=== PATIENT | male | born 1965 | race Caucasian/White ===

== ENCOUNTER → 2019-12-10 07:11 | Outpatient (CLI) | payer MEDICAID, SELFPAY ==
--- NOTE | 2019-12-10 | CA_ITS ---
APPROVED REPORT Exam: Pharmacologic Technologist: Eleonora Kenyon Ht: 5 ft 6 in Wt: 145 lbs BSA: 1.74 m2 HR: 52 bpm BP: 138/69 mmHg Indications: Angina Medical History Medications: Isosorbide,,,,, Aspirin,,,,, Metoprolol,,,,, MethADONE,,,,, RoSUVASTATIN,,,,, Stress Test Details Test: LEXISCAN HR Resting HR: 54 bpm Max Heart Rate (APMHR): 167 bpm Max HR Achieved: 79 bpm Target HR (85% APMHR): 141 bpm % of APMHR: 47 Recovery HR: 61 bpm BP Resting BP: 138.0/69.0 mmHg Max BP: 161.0/71.0 mmHg Recovery BP: 164.0/77.0 mmHg ECG Clinical Exercise duration: 04:00 min Highest Stage Achieved: Stress ECG Conclusion Resting ECG: Sinus Bradycardia Lexiscan portion completed. Patient complained of shortness of breath at peak infusion. Symptoms: Shortness of breath at peak infusion. Resolved in recovery. No chest pain. Arrhythmias/Ectopy: No ectopy. ST-T Changes: Less than 1.[address] depression. Conclusion: Images to follow. Electronically signed by : Prasanna Bronson, 12/10/2019 19:46:13
--- NOTE | 2019-12-10 07:11 | CA_ITS ---
APPROVED REPORT EXAM: Comprehensive 2D, Doppler, and color-flow Echocardiogram Office Electrician: Lucia Hernandez RDCS Ht: 5 ft 6 in Wt: 143lbs BSA: 1.73 BP: 140/76 mmHg Indications: Chest Pain, Shortness of Breath, CAD, Hyperlipidemia, Hypertension/HDD 2D Dimensions LVOT 1.80 cm (M/F) 1.5-2.5 M-Mode Dimensions RVDd 2.50 cm (0.9-2.6) LA Diam 3.00 cm (1.9-4.0) LVDd 2.90 cm (3.5-5.7) Ao Diam 3.30 cm (2.0-3.7) LVDs 5.60 cm (3.5-5.7) AV Cusp 1.80 cm (1.5-2.6) IVSd 0.40 cm (0.6-1.1) PWd 3.10 cm (0.6-1.1) EF (Teich) 60.00% EDV (Teich) 32.20 mL LV Diastology E/A Ratio 1.4 MED E' 5.65 (< 7 cm/sec) E'/MED E' Ratio 15.10 (>14) LAT E' 9.90 (<10 cm/sec) E/LAT E' Ratio 8.60 (>14) Mitral Valve MV E Max Nghia. 85.40 (40-130 cm/s) MV A Velocity 61.20 (40-130 cm/s) E/A Ratio 1.40 Left Ventricle Left atrium is mildly enlarged, left ventricle is normal size, left ventricular wall thickness is upper limit of the normal, visually estimated ejection fraction 55% with no regional wall motion abnormality, grade 1 diastolic dysfunction seen without tissue Doppler evidence of raise left atrial pressure. Right Ventricle Right atrium right ventricular normal size and contractility. Aortic Valve Aortic valve is grossly normal, there is no aortic stenosis or aortic insufficiency. Mitral Valve Mitral valve is grossly normal, there is mild mitral regurgitation. Tricuspid Valve Tricuspid valve is grossly normal, there is mild tricuspid regurgitation. Pulmonic Valve Pulmonic valve is poorly visualized. Great Vessels Aortic root is normal size. Pericardium No significant pericardial effusion noted. Conclusion 1. Normal left ventricular size, preserved left ventricular systolic function visually estimated ejection fraction 55% with no regional wall motion abnormality, grade 1 diastolic dysfunction seen without tissue Doppler evidence of raise left atrial pressure. 2. Mild mitral and tricuspid regurgitation. 3. No significant pericardial effusion noted. Electronically signed by : Prasanna Bronson, 12/10/2019 20:26:41
--- NOTE | 2019-12-10 07:11 | NM_ITS ---
APPROVED REPORT Exam: Nuclear Stress Test Indication: Chest pain, SOB, CAD, Hx of [place], HTN, High cholesterol, Tobacco use, Family history Patient Location: Outpatient Stress Tech: Eleonora Kenyon [place] Tech:Lillian Oliveros, ARRT, RT (R)(N) Ht: 5 ft 6 in Wt: 145 lbs HR: 52 bpm BP: 138/69 mmHg BSA: 1.74 m2 BMI: 23.4 History: Chest pain, SOB, CAD, Hx of [place], HTN, High cholesterol, Tobacco use, Family history Procedure: Patient received a 0.4 mg of intravenous Lexiscan, resting heart rate 52 bpm, resting blood pressure 138/69 mmHg, with Lexiscan maximum heart rate achived was 70 bpm which is Less than 85 % of the maximum predicted heart rate and blood pressure was 156/71 mmHg. With Lexiscan, patient denied any complaint of chest pain. Electrocardiogram Resting electrocardiogram showed sinus rhythm, with Lexiscan there is less than 1.[address] segment depression noted from the baseline EKG. The EKG portion of the Lexiscan Myoview is nondiagnostic. Cardiac Stress and Resting SPECT Images: Cardiac Stress and Resting SPECT images were obtained using technetium 99m Myoview 30.4 mCi stress and 10.89 mCi at rest. Gated SPECT with analysis of segmental wall motion and calculation of the ejection fraction also done. Cardiac stress and resting SPECT images show small area of decreased tracer activity in the anterolateral wall which improves on the resting images suggestive of reversible ischemia, computer derived ejection fraction is over 65% with no regional wall motion abnormality, right ventricle is normal size and contractility. Conclusion: 1. The EKG portion of the Lexiscan Myoview is nondiagnostic. 2. Scintigraphic evidence of small area reversible ischemia involving the anterolateral wall, computer derived ejection fraction is over 65% with no regional wall motion abnormality, right ventricle is normal size and contractility. 3. Abnormal Lexiscan Myoview study. Electronically signed by : Prasanna Bronson, 12/10/2019 19:48:58
--- NOTE | 2019-12-10 07:35 | HMH.ITSHM ---
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 []ROSUVASTATIN METOPROLOL METHADONE ISOSORBIDE ASA
== END ==
PROVIDERS: PCP Internal Medicine Cardiovascular Disease; Visit Provider Nurse Practitioner Family
DX: I20.9 Angina pectoris, unspecified (principal); E78.5 Hyperlipidemia, unspecified; R06.00 Dyspnea, unspecified; I10 Essential (primary) hypertension
CPT/HCPCS: 78452; 93017; 93306; A9502; J2785

== ENCOUNTER → 2020-04-04 10:46 | Outpatient (CLI) | payer MEDICAID, SELFPAY ==
[2020-04-04 11:13] LABS: Alanine Aminotransferase 12 U/L (12-78); Albumin Level 4.2 g/dl (3.5-5.0); Alkaline Phosphatase 142 U/L (38-126); Aspartate Amino Transferase 32 U/L (17-59); Bilirubin,Direct 0.1 mg/dl (0.0-0.4); Bilirubin,Indirect 0.2 mg/dL (0.0-0.9); Bilirubin,Total 0.3 mg/dl (0.2-1.3); Bilirubin,Unconjugated 0.3 mg/dL (0.0-1.1); Chol/HDL Ratio 2.3 (1-3.5); Cholesterol 127 mg/dl (140-200); HDL Cholesterol 55 mg/dl (40-60); Total Protein,Serum 7.6 g/dl (6.3-8.2); Triglycerides 124 mg/dl (30-150); VLDL Cholesterol 25 mg/dL (0-40)
[2020-04-04 11:25] LABS: Direct LDL Cholesterol 54.06 mg/dL (100-129)
== END ==
PROVIDERS: Visit Provider Internal Medicine Cardiovascular Disease
DX: E78.2 Mixed hyperlipidemia (principal); I10 Essential (primary) hypertension; I25.118 Atherosclerotic heart disease of native coronary artery with other forms of angina pectoris; I25.2 Old myocardial infarction; R06.02 Shortness of breath; Z95.5 Presence of coronary angioplasty implant and graft
CPT/HCPCS: 36415; 80061; 80076

== ENCOUNTER → 2020-10-27 07:14 | Outpatient (CLI) | payer MEDICAID, SELFPAY ==
--- NOTE | 2020-10-27 07:15 | NM_ITS ---
APPROVED REPORT Exam: Nuclear Stress Test Indication: Chest pain, SOB, Syncope, Dizziness, HTN, CAD, Hx of [place], High cholesterol, Tobacco use, Family history Patient Location: Outpatient Stress Tech: Eleonora Kenyon [place] Tech:Lillian Oliveros, ARRT, RT (R)(N) Ht: 5 ft 3 in Wt: 150 lbs HR: 60 bpm BP: 171/79 mmHg BSA: 1.71 m2 BMI: 26.5 History: Chest pain, SOB, Syncope, Dizziness, HTN, CAD, Hx of [place], High cholesterol, Tobacco use, Family history Procedure: Patient received a 0.4 mg of intravenous Lexiscan, resting heart rate 60 bpm, resting blood pressure 171/79 mmHg, with Lexiscan maximum heart rate achived was 70 bpm which is Less than 85 % of the maximum predicted heart rate and blood pressure was 171/89 mmHg. With Lexiscan, patient denied any complaint of chest pain. Electrocardiogram Resting electrocardiogram showed sinus rhythm, with Lexiscan there is less than 1.[address] segment depression noted from the baseline EKG. The EKG portion of the Lexiscan is nondiagnostic. Cardiac Stress and Resting SPECT Images: Cardiac Stress and Resting SPECT images were obtained using technetium 99m Myoview 31.4 mCi stress and 10.33 mCi at rest. Gated SPECT for analysis of segmental wall motion and calculation of the ejection fraction also done. Prone images were also obtained. Cardiac stress and resting SPECT images show a small area of fixed defect involving the inferior apical wall with normal contractility on gated SPECT is likely secondary to soft tissue attenuation, no reversible ischemia seen. Computer derived ejection fraction 55% with no regional wall motion abnormality, right ventricle is normal size and contractility. Conclusion: 1. The EKG portion of the Lexiscan Myoview is nondiagnostic. 2. No scintigraphic evidence of reversible ischemia seen, computer derived ejection fraction is 55% with no regional wall motion abnormality, right ventricle is normal size and contractility. 3. Likely normal Lexiscan Myoview study. Electronically signed by : Prasanna Bronson, 10/28/2020 06:21:40
--- NOTE | 2020-10-27 07:15 | CA_ITS ---
APPROVED REPORT Exam: Pharmacologic Technologist: Eleonora Kenyon Ht: 5 ft 6 in Wt: 152 lbs BSA: 1.78 m2 HR: 60 bpm BP: 171/79 mmHg Indications: Chest pain Medical History Medications: Omeprazole,,,,, Isosorbide,,,,, Aspirin,,,,, Metoprolol,,,,, Losartan,,,,, CloPIdogrel,,,,, RoSUVASTATIN,,,,, Stress Test Details Test: LEXISCAN HR Resting HR: 58 bpm Max Heart Rate (APMHR): 166 bpm Max HR Achieved: 74 bpm Target HR (85% APMHR): 141 bpm % of APMHR: 44 Recovery HR: 64 bpm BP Resting BP: 171.0/79.0 mmHg Max BP: 171.0/79.0 mmHg Recovery BP: 130.0/80.0 mmHg ECG Clinical Reason for Termination: Completed Protocol Exercise duration: 04:00 min Highest Stage Achieved: Exercise capacity: 1.0 METs Stress ECG Conclusion Symptoms: None Arrhythmias/Ectopy: None ST-T Changes: < 1.[address] segment changes Conclusion: Non-diagnostic lexiscan stress test. Patient received the infusion per protocol without chest pain, ST segment changes or arrhythmias. See the nuclear report for further information. Test Summary . Myoview Injected . . . Stop exercise at 04:00 . . . . . Electronically signed by : Prasanna Bronson, 10/28/2020 06:13:13
--- NOTE | 2020-10-27 08:59 | HMH.ITSHM ---
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 []ROSUVASTATIN OMEPRAZOLE NITRO METOPROLOL LOSARTAN ISOSORBIDE CLOPIDOGREL ASA
== END ==
PROVIDERS: Visit Provider Nurse Practitioner Family
DX: R06.02 Shortness of breath (principal); I20.9 Angina pectoris, unspecified; I10 Essential (primary) hypertension; E78.2 Mixed hyperlipidemia; F17.200 Nicotine dependence, unspecified, uncomplicated; I25.118 Atherosclerotic heart disease of native coronary artery with other forms of angina pectoris; I25.2 Old myocardial infarction; Z95.5 Presence of coronary angioplasty implant and graft
CPT/HCPCS: 78452; 93017; A9502; J2785

== ENCOUNTER → 2022-06-09 15:25 | Outpatient (CLI) | payer MEDICAID, SELFPAY ==
[2022-06-09 16:19] LABS: Basophils % 0.6 % (0.1-2.0); Eosinophils # 0.1 K/mm3 (0.0-0.4); Eosinophils % 1.5 % (0.1-12.0); Hematocrit 41.7 % (42.0-52.0); Hemoglobin 12.9 g/dL (14.1-18.0); Lymphocytes # 2.3 K/mm3 (0.7-4.5); Lymphocytes % 40.1 % (10-50); Mean Corpuscular HGB Conc 30.9 g/dL (31.8-35.4); Mean Corpuscular Hemoglobin 30.3 pg (27.0-31.2); Mean Corpuscular Volume 98.2 fl (80-94); Monocytes # 0.4 K/mm3 (0.1-1.0); Monocytes % 6.3 % (1.7-9.3); Neutrophils % 51.5 % (37.0-80.0); Platelet Count 200 K/mm3 (142-424); Red Blood Count 4.24 M/mm3 (4.60-6.20); Red Cell Distribution Width 13.7 % (11.5-17.5); White Blood Count 5.8 K/mm3 (4.8-10.8)
== END ==
PROVIDERS: Visit Provider Physician Assistant
DX: Z01.812 Encounter for preprocedural laboratory examination (principal); Z20.822 Contact with and (suspected) exposure to COVID-19; R06.02 Shortness of breath; I20.8 Other forms of angina pectoris; I10 Essential (primary) hypertension; I25.2 Old myocardial infarction; E78.2 Mixed hyperlipidemia; I63.9 Cerebral infarction, unspecified; F17.200 Nicotine dependence, unspecified, uncomplicated; Z95.5 Presence of coronary angioplasty implant and graft
CPT/HCPCS: 36415; 85025; C9803; U0003; U0005

== ENCOUNTER 2022-06-10 08:59 | Day surgery (SDC) | payer MEDICAID, SELFPAY ==
[2022-06-10] VITALS (15 sets, daily range): BP systolic 76–185; BP diastolic 43–105; PULSE 40–78; RESP 18; TEMP 36.9; O2SAT 95–98; BMI 21.7
--- NOTE | 2022-06-10 07:38 | IR_ITS ---
APPROVED REPORT Patient Location: Outpatient Wafer Production Lead Worker: MAL Allen RT (R) PROCEDURES Left heart catheterization Left ventriculogram Selective coronary angiogram Drug-eluting stent deployment to the mid LAD Drug-eluting stent deployment to the proximal dominant right coronary INDICATION Coronary artery disease, Accelerated angina pectoris Informed consent was obtained prior to the procedure. COMPLICATIONS None Estimated Blood Loss: Less than 10 mls TECHNIQUE One percent lidocaine used to anesthetize the right anterior aspect of the wrist. The right radial artery was accessed via the Seldinger technique. A 6 Malay sheath was placed in the right radial artery. 2.5 mg of verapamil, 800 mcg of nitroglycerin, 1mg Lidocaine and 5000 U Heparin were given through the arterial sheath. The papa catheter was also used to perform left heart catheterization, left ventriculogram and selective coronary angiogram. At the end of the diagnostic angiogram therapeutic heparin was administered and the guide catheter was placed in the left main artery followed by a Choice PT extra-support wire. A 3 mm x 15 mm resolute [place] stent was deployed at 24 ricarda reducing the severe in-stent restenotic lesion to 0%. MARYCHUY-3 flow was present before and after the procedure. Following this the apparatus was removed and the guide catheter was placed in the right coronary artery followed by the same wire. A 2.75 x 15 mm resolute Matlock stent was then deployed at 22 ricarda in the proximal right coronary artery reducing the severe stenosis to 0%. MARYCHUY-3 flow was present before and after the procedure. At the end of the procedure the apparatus was removed the sheath was removed good hemostasis was achieved using TR banding patient was transferred to the postop holding area in stable condition ANGIOGRAPHIC RESULTS The left main artery Normal The left anterior descending artery Has a proximal 20% stenosis immediately proximal to a proximal LAD stent which extends throughout the proximal and midportion of the LAD. The distal portion of the stent has a concentric 90% in-stent restenotic lesion. The circumflex artery Large nondominant with diffuse 30% stenoses in the second obtuse marginal artery and true circumflex artery The right coronary artery Is dominant and has a proximal concentric 80% stenosis followed by a long diffuse mid vessel 30% stenosis The HAZEL ventriculogram reveals Normal 65% The left ventricular end-diastolic pressure 10 mmHg IMPRESSION Severe two-vessel coronary disease as described above Successful stenting of the mid LAD and proximal right coronary artery Normal ejection fraction Normal left ventricular end-diastolic pressure PLAN 1. Dual antiplatelet therapy 2. LDL less than 55 to be achieved with high intensity statin 3. Avoidance of tobacco products 4. Cardiac rehabilitation 5. Aggressive risk factor modification Electronically signed by : Fabien Brown MD 06/10/2022 12:12:53
[2022-06-10 11:30] LABS: CATHL Activated Clotting Time 273 SEC (74-125)
--- NOTE | 2022-06-10 14:46 | HMH.PHACLD ---
Colton Velazquez has received discharge medication counseling on the following medications: -ASPIRIN (PATIENT ALREADY TAKING) -PLAVIX (PATIENT ALREADY TAKING) -ROSUVASTATIN (PATIENT ALREADY TAKING) -METOPROLOL (PATIENT ALREADY TAKING) -LOSARTAN (PATIENT ALREADY TAKING) PATIENT VERBALIZED NO QUESTIONS AT THIS TIME.
== END 2022-06-10 14:59 | disposition home or self-care (01) ==
LOC: CATHLAB 09:01
PROVIDERS: Visit Provider Internal Medicine
DX: I10 Essential (primary) hypertension (principal); E78.2 Mixed hyperlipidemia; F17.210 Nicotine dependence, cigarettes, uncomplicated; I25.118 Atherosclerotic heart disease of native coronary artery with other forms of angina pectoris; I25.2 Old myocardial infarction; R06.02 Shortness of breath; Z95.5 Presence of coronary angioplasty implant and graft; T82.855A Stenosis of coronary artery stent, initial encounter
CPT/HCPCS: 85347; 92928; 93458; 99152; C1725; C1769; C1876; C9600; J1644; Q9967

== ENCOUNTER → 2022-06-17 09:33 | Outpatient (CLI) | payer MEDICAID, SELFPAY ==
[2022-06-17 10:55] LABS: Alanine Aminotransferase 15 U/L (12-78); Albumin Level 3.6 g/dl (3.5-5.0); Alkaline Phosphatase 125 U/L (38-126); Aspartate Amino Transferase 29 U/L (17-59); Bilirubin,Direct 0.2 mg/dl (0.0-0.4); Bilirubin,Total 0.2 mg/dl (0.2-1.3); Chol/HDL Ratio 2.4 (1-3.5); Cholesterol 106 mg/dl (140-200); HDL Cholesterol 45 mg/dl (40-60); Total Protein,Serum 6.4 g/dl (6.3-8.2); Triglycerides 87 mg/dl (30-150); VLDL Cholesterol 17 mg/dL (0-40)
[2022-06-18 08:29] LABS: Direct LDL Cholesterol 42 mg/dL (100-129)
== END ==
PROVIDERS: PCP Pediatrics; Visit Provider Nurse Practitioner
DX: I25.10 Atherosclerotic heart disease of native coronary artery without angina pectoris (principal); I25.2 Old myocardial infarction; R00.1 Bradycardia, unspecified; I11.9 Hypertensive heart disease without heart failure; E78.5 Hyperlipidemia, unspecified; F17.200 Nicotine dependence, unspecified, uncomplicated; Z95.5 Presence of coronary angioplasty implant and graft
CPT/HCPCS: 36415; 80061; 80076

== ENCOUNTER 2024-03-21 14:09 | Outpatient (CLI) | payer MEDICAID, SELFPAY ==
[2024-03-21 14:32] LABS: Basophils # 0.1 K/mm3 (0-0.2); Basophils % 0.9 % (0.1-2.0); Eosinophils # 0.1 K/mm3 (0.0-0.4); Eosinophils % 1.3 % (0.1-12.0); Hematocrit 42.2 % (42.0-52.0); Hemoglobin 13.5 g/dL (14.1-18.0); Lymphocytes % 38.1 % (10-50); Mean Corpuscular HGB Conc 32.1 g/dL (31.8-35.4); Mean Corpuscular Hemoglobin 30.3 pg (27.0-31.2); Mean Corpuscular Volume 94.3 fl (80-94); Mean Platelet Volume 7.9 fl (7.4-10.4); Monocytes # 0.5 K/mm3 (0.1-1.0); Monocytes % 6.3 % (1.7-9.3); Neutrophils # 4.1 K/mm3 (1.8-7.8); Neutrophils % 53.4 % (37.0-80.0); Platelet Count 195 K/mm3 (142-424); Red Blood Count 4.48 M/mm3 (4.60-6.20); Red Cell Distribution Width 13.6 % (11.5-17.5); White Blood Count 7.7 K/mm3 (4.8-10.8)
[2024-03-21 15:02] LABS: Chloride 105 mmol/L (98-107)
[2024-03-21 15:03] LABS: Potassium 4.5 mmoL/L (3.5-5.1); Sodium 141 mmol/L (136-145)
[2024-03-21 15:05] LABS: Alanine Aminotransferase 16 U/L (12-78); Anion Gap 10.5 mEq/L (5-15); Aspartate Amino Transferase 30 U/L (17-59); Bilirubin,Unconjugated 0.1 mg/dL (0.0-1.1); Blood Urea Nitrogen 25 mg/dl (9-20); Carbon Dioxide 30 mmol/L (22.0-30.0); Cholesterol 100 mg/dl (140-200); Estimated Glomerular Filt Rate 62 ml/min (>60); GFR (African American) 76 ML/MIN (>60); Triglycerides 138 mg/dl (30-150); VLDL Cholesterol 28 mg/dL (0-40)
[2024-03-21 15:06] LABS: Albumin Level 3.9 g/dl (3.5-5.0); Alkaline Phosphatase 102 U/L (38-126); Bilirubin,Direct 0.3 mg/dl (0.0-0.4); Bilirubin,Total 0.3 mg/dl (0.2-1.3); Calcium 9.2 mg/dl (8.4-10.2); Glucose 79 mg/dl (74-100); Magnesium 1.8 mg/dl (1.6-2.3); Total Protein,Serum 6.4 g/dl (6.3-8.2)
[2024-03-21 15:17] LABS: Direct LDL Cholesterol 34.67 mg/dL (100-129)
[2024-03-21 15:20] LABS: Free T4 (Free Thyroxine) 0.91 ng/dl (0.78-2.19)
[2024-03-21 15:36] LABS: Thyroid Stimulating Hormone 1.63 uIU/mL (0.465-4.68)
[2024-03-21 18:13] LABS: HDL Cholesterol 51 mg/dl (40-60)
== END 2024-03-21 23:59 | disposition home or self-care (01) ==
LOC: LAB 14:10
PROVIDERS: PCP Pediatrics; Visit Provider Internal Medicine
DX: R00.1 Bradycardia, unspecified (principal); I25.119 Atherosclerotic heart disease of native coronary artery with unspecified angina pectoris; F17.210 Nicotine dependence, cigarettes, uncomplicated
CPT/HCPCS: 36415; 80048; 80061; 80076; 83735; 84439; 84443; 85025; 93270

== ENCOUNTER 2024-04-03 14:18 | Outpatient (CLI) | payer MEDICAID, SELFPAY ==
--- NOTE | 2024-04-03 14:20 | CA_ITS ---
APPROVED REPORT EXAM: Comprehensive 2D, Doppler, and color-flow Echocardiogram Senior Environmental Practice Leader: HAMLET Berrios, RVS Ht: 5 ft 6 in Wt: 133lbs BSA: 1.68 BP: 127/72 mmHg Indications: CAD, Stents, Smoker, CP, CAD, CP, HTN, HLD, SOB, SMOKER 2D Dimensions IVSd 0.85 cm LVEF (Visual) 50.50 % PWd 0.81 cm LA Volume 44.70 mL LVDd 3.91 cm LA Volume Index 26.00 mL/m2 (M/F) 16-34 LVDs 2.92 cm Left Atrium 3.79 cm M-Mode Dimensions RVDd 3.17 cm (0.9-2.6) LA Diam 3.99 cm (1.9-4.0) LVDd 3.57 cm (3.5-5.7) LVDs 2.42 cm (3.5-5.7) IVSd 0.82 cm (0.6-1.1) PWd 0.78 cm (0.6-1.1) EF (Teich) 61.40% EPSs 0.61 cm FS 32.20% EDV (Teich) 53.30 mL TAPSE 1.98 (<1.7) ESV (Teich) 20.60 mL LV Diastology E Decel Time 297 (160-240 msec) E/A Ratio 1.01 Aortic Valve LISANDRA Index 1.43 cm2/m2 AoV Peak Nghia. 122.0 (50-130 cm/s) AO Peak GR. 6.00 mmHg AO Mean GR. 3.00 (<5 mmHg) AO VTI 27.9 (18-25 cm) LISANDRA (VTI) 2.46 (2.5-4.5 cm2) Mitral Valve MV A Velocity 53.0 (40-130 cm/s) E/A Ratio 1.01 Pulmonary Valve MN End VMAX 216.0 cm/s Tricuspid Valve TR P. Velocity 208.00 cm/s RAP Estimate 10.00 mmHg RVSP 27.20 mmHg Left Ventricle The left ventricle is normal size. The left ventricular systolic function is normal. The left ventricular ejection fraction is within the normal range. There is normal left ventricular wall thickness. There is normal LV segmental wall motion. The left ventricular diastolic function is normal. LVEF is 55%. Right Ventricle The right ventricle is normal size. The right ventricular systolic function is normal. Atria The left atrium size is normal. The right atrium size is normal. There is no Doppler evidence of interatrial shunt. Aortic Valve The aortic valve opens well. There is no aortic valvular stenosis. No aortic regurgitation is present. Mitral Valve The mitral valve is normal in structure. No evidence of mitral valve stenosis. Trace mitral valve regurgitation. Tricuspid Valve The tricuspid valve leaflets are thin and pliable. Trace tricuspid regurgitation. RVSP is normal. Pulmonic Valve The pulmonary valve is normal in structure. Trace pulmonic regurgitation. Great Vessels The aortic root is normal in size. The ascending aorta is normal in size. IVC is normal in size and collapses >50% with inspiration. Pericardium There is no pericardial effusion. Other Information Study Quality: Fair Conclusion Normal biventricular systolic function. No significant valvular stenosis or regurgitation. Electronically signed by : Leann Cantu MD 04/03/2024 23:56:13
== END 2024-04-03 23:59 | disposition home or self-care (01) ==
LOC: RT 14:18
PROVIDERS: PCP Pediatrics; Visit Provider Internal Medicine
DX: I25.119 Atherosclerotic heart disease of native coronary artery with unspecified angina pectoris (principal); R00.1 Bradycardia, unspecified; F17.210 Nicotine dependence, cigarettes, uncomplicated
CPT/HCPCS: 93306

== ENCOUNTER 2024-10-31 09:25 | Day surgery (SDC) | payer MEDICAID, SELFPAY ==
[2024-10-31] VITALS (13 sets, daily range): BP systolic 77–141; BP diastolic 52–88; PULSE 56–70; RESP 16–20; TEMP 36.9; O2SAT 89–99; BMI 21.7
--- NOTE | 2024-10-31 07:01 | IR_ITS ---
APPROVED REPORT Patient Location: Outpatient PROCEDURES Left heart catheterization Left ventriculogram Selective coronary angiogram Drug-eluting stent deployment to the mid LAD INDICATION Coronary artery disease, In-stent restenosis, Angina pectoris, Informed consent was obtained prior to the procedure. COMPLICATIONS NONE Estimated Blood Loss: LESS THAN 10 ML TECHNIQUE One percent lidocaine used to anesthetize the right anterior aspect of the wrist. The right radial artery was accessed via the Seldinger technique. A 6 Iranian sheath was placed in the right radial artery. 2.5 mg of Verapamil, 800 mcg of nitroglycerin, 1mg Lidocaine and 5000 U Heparin were given through the arterial sheath. The 6 Iranian JL 3 was also used to perform left heart catheterization, left ventriculogram and selective coronary angiogram. At the end the diagnostic angiogram therapeutic Was administered giving a therapeutic ACT and the guide catheter was placed in left main artery followed by Choice PT extra-support wire placed distally. A 3 mm x 18 mm [place] frontier stent was deployed at 24 ricarda reducing the severe stenosis to 0%. MARYCHUY-3 flow was present before and after the procedure. Within the procedure the apparatus was removed the sheath was removed and hemostasis was achieved using TR banding patient was transferred to the postop putting in stable condition ANGIOGRAPHIC RESULTS The left main artery Normal The left anterior descending artery Has a stent in the proximal segment which is widely patent with minimal in-stent restenosis. The mid LAD has concentric 80 to 90% in-stent restenosis with remaining LAD widely patent. The circumflex artery There is a large dominant vessel with proximal 20 to 30% stenosis with a stent in the mid segment which appears to be widely patent with minimal in-stent restenosis. The right coronary artery Nondominant with a stent in the proximal segment which has mild in-stent restenosis and mid vessel 20 to 30% stenosis The HAZEL ventriculogram reveals Not performed The left ventricular end-diastolic pressure Not measured IMPRESSION Severe in-stent restenosis within the mid LAD Successful stent to the mid LAD severe disease reduced to 0% with 1 drug-eluting stent PLAN 1. Dual antiplatelet therapy 2. Cardiac rehabilitation 3. Avoidance of tobacco products 4. Risk factor modification 5. LDL less than 55 to be achieved with high intensity statin Electronically signed by : Fabien Brown MD 10/31/2024 12:38:27
[2024-10-31 10:03] LABS: Hematocrit 44.3 % (42.0-52.0); Hemoglobin 14.3 g/dL (14.1-18.0); Potassium 3.8 mmoL/L (3.5-5.1); Red Blood Count 4.77 M/mm3 (4.60-6.20); White Blood Count 9.6 K/mm3 (4.8-10.8)
[2024-10-31 10:04] LABS: Anion Gap 7.8 mEq/L (5-15); Basophils % 0.4 % (0.1-2.0); Blood Urea Nitrogen 21 mg/dl (9-20); Carbon Dioxide 32 mmol/L (22.0-30.0); Chloride 102 mmol/L (98-107); Creatinine Clearance Estimated 77 mL/min (50-200); Eosinophils # 0.1 K/mm3 (0.0-0.4); Eosinophils % 0.6 % (0.1-12.0); Estimated Glomerular Filt Rate 87 ml/min (>60); GFR (African American) 105 ML/MIN (>60); Glucose 89 mg/dl (74-100); Lymphocytes # 2.1 K/mm3 (0.7-4.5); Mean Corpuscular HGB Conc 32.3 g/dL (31.8-35.4); Mean Corpuscular Volume 92.9 fl (80-94); Mean Platelet Volume 9.1 fl (7.4-10.4); Monocytes # 0.5 K/mm3 (0.1-1.0); Monocytes % 5.3 % (1.7-9.3); Neutrophils # 6.9 K/mm3 (1.8-7.8); Neutrophils % 71.4 % (37.0-80.0); Platelet Count 216 K/mm3 (142-424); Red Cell Distribution Width 12.5 % (11.5-17.5); Sodium 138 mmol/L (136-145)
[2024-10-31] MEDS: HEPARIN 1,000 UNITS/ML 10ML VIAL (CATH LAB) 10000 UNIT IV (11:19)
[2024-10-31] MEDS: VERAPAMIL 2.5MG/ML 2ML VIAL 2.5 MG IV (11:19)
[2024-10-31] MEDS: HEPARIN 1,000 UNITS/500ML NS (CATH LAB) 3000 UNIT IV (11:20)
[2024-10-31] MEDS: LIDOCAINE 1% 10ML MDV 20 ML IJ (11:20)
[2024-10-31] MEDS: NITROGLYCERIN 800MCG/8ML SYR (CATH LAB) 800 MCG IA (11:20)
[2024-10-31] MEDS: diphenhydrAMINE 50MG/ML VIAL 50 MG IV (11:21)
[2024-10-31] MEDS: 0.9 % SODIUM CHLORIDE 500 ML 25 ML IV (11:21)
[2024-10-31] MEDS: FENTANYL 100MCG/2ML VIAL 50 MCG IV (12:22)
[2024-10-31] MEDS: MIDAZOLAM HCL 1MG/ML 5ML VIAL 1 MG IV (12:22)
--- NOTE | 2024-10-31 12:29 | SUR.PHASEII ---
No beta meagan per MD
[2024-10-31] MEDS: IOPAMIDOL-370 (76%);100ML BOTTLE 60 ML IV (14:00)
[2024-10-31 14:15] LABS: CATHL Activated Clotting Time 199 SEC (74-125)
== END 2024-10-31 15:17 | disposition home or self-care (01) ==
LOC: CATHLAB 09:26
PROVIDERS: PCP Pediatrics; Visit Provider Internal Medicine
DX: I25.118 Atherosclerotic heart disease of native coronary artery with other forms of angina pectoris (principal); T82.855A Stenosis of coronary artery stent, initial encounter; I10 Essential (primary) hypertension; F17.210 Nicotine dependence, cigarettes, uncomplicated; Z95.5 Presence of coronary angioplasty implant and graft; E78.2 Mixed hyperlipidemia; Z79.899 Other long term (current) drug therapy; Y83.1 Surgical operation with implant of artificial internal device as the cause of abnormal reaction of the patient, or of later complication, without mention of misadventure at the time of the procedure
CPT/HCPCS: 80048; 85025; 85347; 92928; 93458; 99152; C1725; C1769; C1874; C9600; J1200; J1644; J2250; J3010; Q9967

== ENCOUNTER 2024-11-15 12:05 | Outpatient (CLI) | payer MEDICAID, SELFPAY ==
[2024-11-15 12:41] LABS: Basophils % 0.5 % (0.1-2.0); Eosinophils # 0.1 K/mm3 (0.0-0.4); Eosinophils % 1.6 % (0.1-12.0); Hematocrit 44.9 % (42.0-52.0); Hemoglobin 14.4 g/dL (14.1-18.0); Mean Corpuscular HGB Conc 32.1 g/dL (31.8-35.4); Mean Corpuscular Hemoglobin 30.2 pg (27.0-31.2); Mean Corpuscular Volume 94.1 fl (80-94); Mean Platelet Volume 9.2 fl (7.4-10.4); Monocytes # 0.5 K/mm3 (0.1-1.0); Monocytes % 8.2 % (1.7-9.3); Neutrophils # 3.2 K/mm3 (1.8-7.8); Neutrophils % 55.2 % (37.0-80.0); Platelet Count 190 K/mm3 (142-424); Red Blood Count 4.77 M/mm3 (4.60-6.20); Red Cell Distribution Width 12.7 % (11.5-17.5); White Blood Count 5.7 K/mm3 (4.8-10.8)
[2024-11-15 13:08] LABS: Anion Gap 10.5 mEq/L (5-15); Blood Urea Nitrogen 22 mg/dl (9-20); Calcium 9.3 mg/dl (8.4-10.2); Carbon Dioxide 29 mmol/L (22.0-30.0); Chloride 103 mmol/L (98-107); Estimated Glomerular Filt Rate 77 ml/min (>60); GFR (African American) 93 ML/MIN (>60); Glucose 80 mg/dl (74-100); Potassium 4.5 mmoL/L (3.5-5.1); Sodium 138 mmol/L (136-145)
== END 2024-11-15 23:59 | disposition home or self-care (01) ==
LOC: LAB 12:06
PROVIDERS: PCP Pediatrics; Visit Provider Internal Medicine
DX: Z95.5 Presence of coronary angioplasty implant and graft (principal)
CPT/HCPCS: 36415; 80048; 85025

== ENCOUNTER 2025-02-14 09:15 | Outpatient (CLI) | payer MEDICAID, SELFPAY ==
[2025-02-14 09:26] LABS: Basophils % 0.4 % (0.1-2.0); Eosinophils # 0.1 K/mm3 (0.0-0.4); Eosinophils % 1.4 % (0.1-12.0); Hematocrit 45.5 % (42.0-52.0); Hemoglobin 14.3 g/dL (14.1-18.0); Lymphocytes # 2.3 K/mm3 (0.7-4.5); Lymphocytes % 25.2 % (10-50); Mean Corpuscular HGB Conc 31.4 g/dL (31.8-35.4); Mean Corpuscular Hemoglobin 29.6 pg (27.0-31.2); Mean Corpuscular Volume 94.2 fl (80-94); Mean Platelet Volume 8.9 fl (7.4-10.4); Monocytes # 0.6 K/mm3 (0.1-1.0); Monocytes % 7.1 % (1.7-9.3); Neutrophils # 5.9 K/mm3 (1.8-7.8); Neutrophils % 65.6 % (37.0-80.0); Platelet Count 193 K/mm3 (142-424); Red Blood Count 4.83 M/mm3 (4.60-6.20); Red Cell Distribution Width 13.2 % (11.5-17.5)
[2025-02-14 09:52] LABS: Alanine Aminotransferase 17 U/L (12-78); Albumin Level 3.7 g/dl (3.5-5.0); Alkaline Phosphatase 109 U/L (38-126); Anion Gap 10.2 mEq/L (5-15); Aspartate Amino Transferase 25 U/L (17-59); Bilirubin,Direct 0.2 mg/dl (0.0-0.4); Bilirubin,Indirect 0.3 mg/dL (0.0-0.9); Bilirubin,Total 0.5 mg/dl (0.2-1.3); Bilirubin,Unconjugated 0.3 mg/dL (0.0-1.1); Blood Urea Nitrogen 22 mg/dl (9-20); Calcium 8.9 mg/dl (8.4-10.2); Carbon Dioxide 30 mmol/L (22.0-30.0); Chloride 105 mmol/L (98-107); Chol/HDL Ratio 1.7 (1-3.5); Cholesterol 92 mg/dl (140-200); Estimated Glomerular Filt Rate 69 ml/min (>60); GFR (African American) 83 ML/MIN (>60); Glucose 93 mg/dl (74-100); HDL Cholesterol 55 mg/dl (40-60); Magnesium 2.1 mg/dl (1.6-2.3); Potassium 4.2 mmoL/L (3.5-5.1); Sodium 141 mmol/L (136-145); Total Protein,Serum 6.5 g/dl (6.3-8.2); Triglycerides 70 mg/dl (30-150); VLDL Cholesterol 14 mg/dL (0-40)
[2025-02-14 10:11] LABS: Direct LDL Cholesterol < 30.00 mg/dL (100-129)
[2025-02-14 10:13] LABS: Free T4 (Free Thyroxine) 1.09 ng/dl (0.78-2.19)
[2025-02-14 10:23] LABS: Thyroid Stimulating Hormone 1.12 uIU/mL (0.465-4.68)
== END 2025-02-14 23:59 | disposition home or self-care (01) ==
LOC: LAB 09:15
PROVIDERS: PCP Pediatrics; Visit Provider Nurse Practitioner
DX: I25.10 Atherosclerotic heart disease of native coronary artery without angina pectoris (principal); R53.83 Other fatigue; R00.1 Bradycardia, unspecified; F17.200 Nicotine dependence, unspecified, uncomplicated; R06.02 Shortness of breath; Z95.5 Presence of coronary angioplasty implant and graft; I10 Essential (primary) hypertension
CPT/HCPCS: 36415; 80048; 80061; 80076; 83735; 84439; 84443; 85025